=== PATIENT | female | born 1955 | race Caucasian/White ===

== ENCOUNTER 2017-08-10 17:23 | Emergency (ER) | payer BC, OTHER ==
[~2017-08-10] VITALS: Ht 167.6 cm; Wt 95.3 kg
[~2017-08-10 17:23] MED LIST: AMOX-426 PO; ASPI325T2; HYDROCODONE/ACETAMINOPHEN; LEVO137T18; PROP60CA2; TOPI50TA
[2017-08-10 17:28] VITALS: BP_SYST 164
[2017-08-10 20:02] VITALS: BP_SYST 156
== END 2017-08-10 20:02 | disposition home or self-care (01) ==
LOC: SED 17:23
DX: S90.01XA Contusion of right ankle, initial encounter (principal); J45.909 Unspecified asthma, uncomplicated; Z86.73 Personal history of transient ischemic attack (TIA), and cerebral infarction without residual deficits; Z79.82 Long term (current) use of aspirin; Z79.899 Other long term (current) drug therapy; W22.8XXA Striking against or struck by other objects, initial encounter; Y93.E1 Activity, personal bathing and showering; Y92.091 Bathroom in other non-institutional residence as the place of occurrence of the external cause; Y99.8 Other external cause status
CPT/HCPCS: 73590-TC; 99284